=== PATIENT | male | born 1985 | race African-American/Black ===

== ENCOUNTER 2021-01-21 14:25 | Emergency (ER) | payer MEDICAID ==
[~2021-01-21] VITALS: Ht 188 cm; Wt 137.0 kg
[2021-01-21] MEDS ORDERED: ONDANSETRON 4MG ODT PO ONE (15:15)
[2021-01-21] MEDS ORDERED: KETOROLAC 60MG/2ML VIAL IM ONE (15:15)
[2021-01-21] MEDS ORDERED: IBUP-2029 MT (15:47)
[2021-01-21] MEDS ORDERED: ONDA4TAB11 PO (15:47)
[2021-01-21 16:41] VITALS: BP 141/85
== END 2021-01-21 16:55 | disposition home or self-care (01) ==
LOC: ER 14:25
DX: J11.1 Influenza due to unidentified influenza virus with other respiratory manifestations (principal); Z20.822 Contact with and (suspected) exposure to COVID-19
CPT/HCPCS: 96372; 99283; C9803; J1885; Q0162; U0003; U0005